=== PATIENT | male | born 1985 | race American Indian/Alaskan Native ===

== ENCOUNTER 2020-12-22 22:47 | Emergency (ER) | payer SELFPAY ==
[2020-12-23] MEDS ORDERED: traMADol 50 MG TAB PO ONE (00:40)
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
[2020-12-23 02:32] VITALS: BP 141/89
== END 2020-12-23 02:01 | disposition home or self-care (01) ==
LOC: ED 22:47
DX: R07.81 Pleurodynia (principal); M54.50 Low back pain, unspecified; Z98.890 Other specified postprocedural states; Z91.040 Latex allergy status; V89.2XXA Person injured in unspecified motor-vehicle accident, traffic, initial encounter; Y93.89 Activity, other specified; Y92.410 Unspecified street and highway as the place of occurrence of the external cause; Y99.8 Other external cause status
CPT/HCPCS: 99284